=== PATIENT | female | born 1990 | race African-American/Black ===

== ENCOUNTER 2019-05-07 17:24 | Emergency (ER) | payer BC, OTHER | END 2019-05-07 18:05 | disposition home or self-care (01) | LOC: MADERS 17:24 | DX: M79.662 Pain in left lower leg (principal); M79.661 Pain in right lower leg; Z79.899 Other long term (current) drug therapy | CPT/HCPCS: 99281 ==

== ENCOUNTER 2022-03-13 05:01 | Emergency (ER) | payer MEDICAID ==
[2022-03-13] MEDS ORDERED: Labetalol HCl 100 MG/20 ML VIAL ONE (05:27)
== END 2022-03-13 05:41 | disposition short-term general hospital (02) ==
LOC: MADERS 05:01
DX: O75.89 Other specified complications of labor and delivery (principal); O24.419 Gestational diabetes mellitus in pregnancy, unspecified control; Z3A.38 38 weeks gestation of pregnancy
CPT/HCPCS: 96374

== ENCOUNTER 2024-05-02 18:47 | Emergency (ER) | payer BC, OTHER ==
[~2024-05-02 18:47] MED LIST: Iopamidol 370 76% 100 ML VIAL ONE
[2024-05-02] MEDS ORDERED: Sodium Chloride 0.9% 1,000 ML ONE (19:28)
[2024-05-02] MEDS ORDERED: Ondansetron PF 4 MG/2 ML Vial ONE (19:28)
[2024-05-02] MEDS ORDERED: Morphine 4 MG/ML VIAL ONE (19:28)
[2024-05-02 19:49] LABS: Bilirubin Negative (Negative); Blood, Urine Trace (Negative); Clarity Slightly Cloudy (Clear); Glucose, Urine (Dipstick) Negative (Negative); Ketone, Urine Negative (Negative); Leukocyte Small (Negative); Nitrite Positive (Negative); Protein, Urine (Dipstick) 30 mg/dL (Neg-Trace); Specific Gravity, Urine 1.025 (1.005-1.030); Urobilinogen 0.2 mg/dL (Less than 2)
[2024-05-02 19:50] LABS: Pregnancy Test - Urine (BHCG) Negative (Negative); Pregu Control Background? CLEAR/WHITE (CLR/WHITE); Pregu Control Bar Appear? YES (CONTROL BAR); Specific Gravity 1.025 (1.002-1.036)
[2024-05-02 19:53] LABS: Bacteria/HPF 3+ HPF (None Seen); CAUTI Indications for Culture Pelvic or flank pain; RBC/HPF 0-3 HPF (0-3)
[2024-05-02 19:54] LABS: Urine Culture Reflex Yes Yes
[2024-05-02 20:04] LABS: ALT (SGPT) 24 U/L (8-55); AST (SGOT) 17 U/L (5-34); Albumin 4.2 g/dL (3.5-5.0); Alkaline Phosphatase 53 U/L (40-110); Anion Gap 14 mmol/L (10-20); BUN (Urea Nitrogen) 6 mg/dL (7.0-18.7); Bilirubin, Total Less than 0.2 mg/dL (0.2-1.2); Calc. Creatinine Clearance 0 mL/min (70-130); Calcium 9.2 mg/dL (7.8-10.44); Carbon Dioxide 24 mmol/L (22-29); Chloride 104 mmol/L (98-107); Estimated GFR 86; Globulin 3.6 g/dL (2.4-3.5); Glucose 94 mg/dL (70-105); Lipase 37 U/L (8-78); Potassium 3.4 mmol/L (3.5-5.1); Protein, Total 7.8 g/dL (6.0-8.3); Sodium 139 mmol/L (136-145)
[2024-05-02 20:05] LABS: Hematocrit 41.7 % (36.0-47.0); Hemoglobin 12.6 g/dL (12.0-16.0); Hypochromia SLIGHT = 6-15 cells (100X) (0-5/hpf); MDiff Complete? YES; Mean Corpuscular HGB CONC 30.1 g/dL (32.0-36.0); Mean Corpuscular Hemoglobin 26.6 pg (27.0-31.0); Mean Corpuscular Volume 88.5 fl (78.0-98.0); Mean Platelet Volume 6.9 fL (7.4-10.4); Platelet Adequacy Comment Appears Adequate; Platelet Count 339 10x3/uL (130-400); RBC Distribution Width 13.8 % (11.5-14.5); Red Blood Cell (RBC) Count 4.71 mill/uL (4.20-5.40)
[2024-05-02 20:06] LABS: Eosinophils 3 % (0-10); Lymphocytes 39 % (21-51); Monocytes 5 % (0-10); Neutrophil 37 % (42-75); Reactive Lymphocytes 16 % (0-10)
[2024-05-02] MEDS ORDERED: cefTRIAXone (ROCEPHIN) 1 GM VIAL ONE (21:18)
[2024-05-02] MEDS ORDERED: Sodium Chloride 0.9% 0 ML ONE (21:18)
== END 2024-05-02 22:11 | disposition home or self-care (01) ==
LOC: MADERS 18:47
DX: K42.9 Umbilical hernia without obstruction or gangrene (principal); R19.7 Diarrhea, unspecified; N39.0 Urinary tract infection, site not specified
CPT/HCPCS: 74177; 80053; 81001; 81025; 83690; 85025; 87077; 87086; 87186; 96361; 96374; 96375; J0696; J2272; J2405; J7030; Q9967